=== PATIENT | male | born 1955 | race Caucasian/White ===

== ENCOUNTER → 2016-07-18 | Outpatient (CLI) | payer OTHER ==
[~2016-07-18] MED LIST: ASA325 MG PO; CALTRATE-600 D600 MG PO; CARDURA DPS8 MG PO; CELEBREX200 MG PO; FLOMAX DPS0.4 MG PO; FLONASE 0.05% D16 GM NS; MILK OF MAGNESI10 ML PO; MIRALAX PACKET17 GM PO; OXY IR DPS5 MG PO; PROBENECID-COL1 EACH PO; PROTONIX40 MG PO; SENOKOT S1 TAB PO; SURFAK DPS240 MG PO; THERA1 EACH PO; TUMS DPS500 MG PO; TYLENOL DPS325 MG PO; ULTRAM DPS50 MG PO; VITAMIN D31000 UNIT PO; [UNRECOGNIZED DRUG - OTHER] PO
== END | disposition home or self-care (01) ==
LOC: RAD.S 12:30 → PTH.S 13:45
DX: M54.5 Low back pain (principal); M51.86 Other intervertebral disc disorders, lumbar region; M47.816 Spondylosis without myelopathy or radiculopathy, lumbar region; M47.812 Spondylosis without myelopathy or radiculopathy, cervical region; M43.12 Spondylolisthesis, cervical region; M54.2 Cervicalgia